=== PATIENT | female | born 1970 | race Caucasian/White ===

== ENCOUNTER → 2017-12-14 | Outpatient (CLI) | payer OTHER ==
[~2017-12-14] MED LIST: IBUPROFEN PO; IRON PO; VITAMIN D3 PO
[2017-12-14 08:51] LABS: MICROSCOPIC AUTO
[2017-12-14 08:52] LABS: CULTURE INDICATED? NO
[2017-12-14 09:03] LABS: ANION GAP 5 mmol/L (5-15); CALCIUM 8.5 mg/dL (8.5-10.1); CHLORIDE 108 mmol/L (98-107)
[2017-12-14 09:04] LABS: BASOPHILS # (AUTO) 0.02 x10^3/uL (0-0.1); BASOPHILS % (AUTO) 0 % (0-1); EOSINOPHILS # (AUTO) 0.39 x10^3/uL (0-0.4); EOSINOPHILS % (AUTO) 4 % (1-7); LYMPHOCYTES # (AUTO) 2.25 x10^3/uL (1-3.4); LYMPHOCYTES % (AUTO) 23 % (22-44); MD NO; MEAN CORPUSCULAR HEMOGLOBIN 30.1 pg (27.0-34.8); MEAN CORPUSCULAR HGB CONC 33.1 g/dL (32.4-35.8); MEAN CORPUSCULAR VOLUME 91.1 fL (80-100); MEAN PLATELET VOLUME 8.6 fL (7.4-10.4); MONOCYTES # (AUTO) 0.63 x10^3/uL (0.2-0.8); MONOCYTES % (AUTO) 7 % (2-9); NEUTROPHILS # (AUTO) 6.52 x10^3/uL (1.8-6.8); NEUTROPHILS % (AUTO) 66 % (42-75); PLATELET COUNT 231 x10^3/uL (130-400); RED BLOOD COUNT 4.92 x10^6/uL (3.82-5.3); RED CELL DISTRIBUTION WIDTH 13.1 % (9.6-15.2)
== END | disposition home or self-care (01) ==
LOC: STAR 08:06
PROVIDERS: ATTEND Obstetrics & Gynecology Gynecology
DX: Z01.818 Encounter for other preprocedural examination (principal); D25.9 Leiomyoma of uterus, unspecified; N92.0 Excessive and frequent menstruation with regular cycle; N94.6 Dysmenorrhea, unspecified; N94.10 Unspecified dyspareunia
CPT/HCPCS: 36415; 80048; 81001; 84703; 85025

== ENCOUNTER 2017-12-22 05:36 | Day surgery (SDC) | payer OTHER ==
[~2017-12-22] VITALS: Ht 172.7 cm; Wt 70.0 kg
[2017-12-22] MEDS ORDERED: LACTATED RINGERS 1,000 ML IV SCH (05:56)
[2017-12-22 05:58] VITALS: BP 103/69
[2017-12-22] MEDS ORDERED: INDIGO CARMINE 0.8%, 5ML ONE (06:09)
[2017-12-22] MEDS ORDERED: LIDOCAINE/PF 1%, 30ML ONE (06:09)
[2017-12-22] MEDS ORDERED: EPINEPHRINE 1 MG/ML, 1ML ONE (06:09)
[2017-12-22] MEDS ORDERED: FENTANYL PF 250 MCG/5ML ONE (06:14)
[2017-12-22] MEDS ORDERED: MIDAZOLAM 1 MG/ML, 2ML ONE (06:14)
[2017-12-22] MEDS ORDERED: ACETAMINOPHEN 500 MG TABLET ONE (06:17)
[2017-12-22] MEDS ORDERED: DEXAMETHASONE 4 MG/ML, 1ML ONE ×2 (06:18)
[2017-12-22] MEDS ORDERED: PROPOFOL 10 MG/ML, 20ML ONE (06:18)
[2017-12-22] MEDS ORDERED: NEOSTIGMINE 1 MG/ML, 10ML ONE (06:19)
[2017-12-22] MEDS ORDERED: ROCURONIUM 10MG/ML,5ML ONE (06:19)
[2017-12-22] MEDS ORDERED: GLYCOPYRROLATE 0.4 MG/2 ML, 2ML ONE (06:20)
[2017-12-22] MEDS ORDERED: WATER-INJECTION,STERILE 10 ML IV ONE (06:22)
[2017-12-22] MEDS ORDERED: CEFAZOLIN 1,000 MG ONE ×2 (06:22)
[2017-12-22] MEDS ORDERED: SCOPOLAMINE PATCH, 1.5MG PATCH.TD72 TD ONE (06:30)
[2017-12-22] MEDS ORDERED: OxyconTIN ER 20 MG TAB.ER PO ONE (06:30)
[2017-12-22] MEDS ORDERED: GABAPENTIN 300 MG CAPSULE PO ONE (06:30)
[2017-12-22] MEDS ORDERED: ACETAMINOPHEN 500 MG TABLET PO ONE (06:30)
[2017-12-22] MEDS ORDERED: ONDANSETRON ODT 8 MG PO ONE (06:30)
[2017-12-22] MEDS ORDERED: hydrALAzine 20 MG/ML, 1ML IV PRN (07:00)
[2017-12-22] MEDS ORDERED: MORPHINE SULFATE 4 MG/ML, 1ML IVPush PRN (07:00)
[2017-12-22] MEDS ORDERED: OXYcodone 5 MG/5 ML ORAL.SOL UDC PO PRN (07:00)
[2017-12-22] MEDS ORDERED: ONDANSETRON 2MG/ML, 2ML IV PRN (07:00)
[2017-12-22] MEDS ORDERED: PROMETHAZINE 12.5 MG SUPP PR PRN (07:00)
[2017-12-22] MEDS ORDERED: PROMETHAZINE 25 MG SUPP PR PRN (07:00)
[2017-12-22] MEDS ORDERED: HYDROmorphone 1 MG/ML, 1ML IV PRN (07:00)
[2017-12-22] MEDS ORDERED: PROMETHAZINE 25 MG/ML, 1ML IV PRN (07:00)
[2017-12-22] MEDS ORDERED: ONDANSETRON ODT 8 MG PO PRN (07:00)
[2017-12-22] MEDS ORDERED: MEPERIDINE/PF 25MG/0.5ML IVPush PRN (07:00)
[2017-12-22] MEDS ORDERED: LABETALOL 5MG/ML, 20ML IV PRN (07:00)
[2017-12-22] MEDS ORDERED: FENTANYL PF 100 MCG/2ML IV PRN (07:00)
[2017-12-22] MEDS ORDERED: KETOROLAC 30 MG/1 ML ONE ×2 (08:22)
== END 2017-12-22 16:55 | disposition home or self-care (01) ==
LOC: OUT 05:36 → MERGE 07:30 → OUT 16:55
PROVIDERS: ATTEND Obstetrics & Gynecology Gynecology
DX: D25.2 Subserosal leiomyoma of uterus (principal); N92.0 Excessive and frequent menstruation with regular cycle; N94.6 Dysmenorrhea, unspecified; N94.10 Unspecified dyspareunia; F17.210 Nicotine dependence, cigarettes, uncomplicated
CPT/HCPCS: 36415; 57268; 58552; 85014; 88307; J0171; J0690; J1100; J1885; J2250; J2704; J2710; J3010; J3490; J7120; Q0162

== ENCOUNTER → 2021-01-05 | Outpatient (CLI) | payer OTHER ==
[~2021-01-05] MED LIST changes: +LEVO50TA5 PO; +LIOT5TAB11 PO; +OMEP20TA62 PO
[2021-01-05 10:26] LABS: BASOPHILS % (AUTO) 1 % (0-1); EOSINOPHILS % (AUTO) 3 % (1-7); LYMPHOCYTES % (AUTO) 22 % (22-44); MEAN CORPUSCULAR HEMOGLOBIN 31.7 pg (27.0-34.8); MEAN CORPUSCULAR HGB CONC 34.7 g/dL (32.4-35.8); MONOCYTES % (AUTO) 6 % (2-9); NEUTROPHILS % (AUTO) 69 % (42-75); PLATELET COUNT 234 x10^3/uL (130-400); RED BLOOD COUNT 4.71 x10^6/uL (3.82-5.3)
[2021-01-05 10:31] LABS: INTERNATIONAL NORMALIZED RATIO 0.95 (0.93-1.1); PROTHROMBIN TIME 10.2 Seconds (9.6-11.5)
[2021-01-05 10:32] LABS: ALANINE AMINOTRANSFERASE 32 U/L (12-78); ALBUMIN 3.7 g/dL (3.4-5.0); ANION GAP 3 mmol/L (5-15); CALCIUM 8.7 mg/dL (8.5-10.1); CHLORIDE 110 mmol/L (98-107); CREATININE 0.68 mg/dL (0.55-1.02)
[2021-01-05 10:34] LABS: ALKALINE PHOSPHATASE 67 U/L (45-117); BILIRUBIN,TOTAL 0.5 mg/dL (0.2-1.0); TOTAL PROTEIN 7.6 g/dL (6.4-8.2)
== END | disposition home or self-care (01) ==
LOC: STAR 09:14
PROVIDERS: ATTEND Surgery
DX: Z01.818 Encounter for other preprocedural examination (principal)
CPT/HCPCS: 36415; 80053; 83690; 85025; 85610

== ENCOUNTER 2021-01-14 07:28 | Day surgery (SDC) | payer OTHER ==
[2021-01-05 09:44] VITALS: BP 131/83
[~2021-01-14] VITALS: Ht 172.7 cm; Wt 67.7 kg
[2021-01-14 07:56] VITALS: BP 131/83
[2021-01-14] MEDS ORDERED: LACTATED RINGERS 1,000 ML IV SCH (08:00)
[2021-01-14] MEDS ORDERED: CHLORHEXIDINE 15 ML UDC PO ONE (08:00)
[2021-01-14] MEDS ORDERED: CHLORHEXIDINE 15 ML UDC ONE (08:08)
[2021-01-14] MEDS ORDERED: MIDAZOLAM 1 MG/ML, 2ML ONE (08:45)
[2021-01-14] MEDS ORDERED: FENTANYL PF 250 MCG/5ML ONE (08:45)
[2021-01-14] MEDS ORDERED: EPINEPHRINE 1 MG/ML, 1ML ONE (09:02)
[2021-01-14] MEDS ORDERED: BUPIVACAINE/PF 0.5% ONE (09:02)
[2021-01-14] MEDS ORDERED: CEFOTETAN 2 GM ONE (09:26)
[2021-01-14] MEDS ORDERED: DEXAMETHASONE 4 MG/ML, 5ML ONE (09:26)
[2021-01-14] MEDS ORDERED: BUPIVACAINE/PF-EPI 0.5% 1:200K INFIL ONE (09:45)
[2021-01-14] MEDS ORDERED: LABETALOL 5MG/ML, 20ML IV PRN (10:00)
[2021-01-14] MEDS ORDERED: OXYcodone 5 MG/5 ML ORAL.SOL UDC PO PRN (10:00)
[2021-01-14] MEDS ORDERED: LORazepam 2 MG/ML, 1ML IVPush PRN (10:00)
[2021-01-14] MEDS ORDERED: ALBUTEROL SULFATE 2.5 MG/3 ML NPPB PRN (10:00)
[2021-01-14] MEDS ORDERED: PROMETHAZINE 25 MG/ML, 1ML IVPush PRN (10:00)
[2021-01-14] MEDS ORDERED: FENTANYL PF 100 MCG/2ML IV PRN (10:00)
[2021-01-14] MEDS ORDERED: MEPERIDINE/PF 25MG/0.5ML IVPush PRN (10:00)
[2021-01-14] MEDS ORDERED: HYDROmorphone 1 MG/ML, 1ML INJ IVPush PRN (10:00)
[2021-01-14] MEDS ORDERED: ACETAMINOPHEN 325 MG TABLET PO PRN (10:00)
[2021-01-14] MEDS ORDERED: NEOSTIGMINE 1 MG/ML, 10ML ONE (10:18)
[2021-01-14] MEDS ORDERED: ONDANSETRON 2MG/ML, 2ML ONE (10:18)
[2021-01-14] MEDS ORDERED: CEFAZOLIN 1,000 MG ONE (10:18)
[2021-01-14] MEDS ORDERED: PROPOFOL 10 MG/ML, 20ML ONE (10:18)
[2021-01-14] MEDS ORDERED: GLYCOPYRROLATE 0.2MG/1ML, 5ML ONE (10:18)
[2021-01-14] MEDS ORDERED: KETOROLAC 30 MG/1 ML ONE (10:18)
[2021-01-14] MEDS ORDERED: ROCURONIUM 10MG/ML,5ML ONE (10:18)
[2021-01-14] MEDS ORDERED: LIDOCAINE-MPF 2% ,5ML ONE (10:18)
[2021-01-14] MEDS ORDERED: ACETAMINOPHEN 650 MG/20.3 ML UDC ONE (10:35)
[2021-01-14] MEDS ORDERED: OXYcodone 5 MG/5 ML ORAL.SOL UDC ONE (10:36)
[2021-01-14] MEDS ORDERED: FENTANYL PF 100 MCG/2ML ONE (10:36)
[2021-01-14] MEDS ORDERED: HYDR-2214 PO (10:39)
== END 2021-01-14 12:40 | disposition home or self-care (01) ==
LOC: OUT 07:28
PROVIDERS: ATTEND Surgery
DX: K80.10 Calculus of gallbladder with chronic cholecystitis without obstruction (principal); K82.8 Other specified diseases of gallbladder; K21.9 Gastro-esophageal reflux disease without esophagitis; E78.5 Hyperlipidemia, unspecified; E03.9 Hypothyroidism, unspecified; F17.210 Nicotine dependence, cigarettes, uncomplicated; Z79.890 Hormone replacement therapy; Z79.899 Other long term (current) drug therapy; Z90.49 Acquired absence of other specified parts of digestive tract; Z90.710 Acquired absence of both cervix and uterus; Z80.0 Family history of malignant neoplasm of digestive organs
CPT/HCPCS: 47562; 88304; J0171; J1100; J1885; J2250; J2405; J2704; J2710; J3010; J7120; J0690